=== PATIENT | female | born 1975 | race Caucasian/White ===

== ENCOUNTER 2016-06-03 10:13 | Emergency (ER) | payer BC ==
[~2016-06-03] VITALS: Ht 160 cm; Wt 67.5 kg
[~2016-06-03 10:13] MED LIST: LACT1CAP6 PO; MULT-506 PO; ONDA4TAB10 SL
[2016-06-03 10:21] VITALS: TEMP 36.7; Ht 160 cm; Wt 67.5 kg
[2016-06-03] MEDS ORDERED: SODIUM CHLORIDE 0.9% 1000ML 1,000 ML IV STA (10:44)
[2016-06-03] MEDS ORDERED: ONDANSETRON INJ 2 MG/ML 2 ML VIAL IV STA (10:44)
[2016-06-03] MEDS ORDERED: KETOROLAC TROMETHAMINE 30 MG/ML VIAL IV STA (10:44)
[2016-06-03 11:12] LABS: BASO % 0.2 %; BASO ABS # 0.01 K/uL (0-0.2); COMPLETE YES; EOS % 0.2 %; HEMATOCRIT 43.3 % (37-47); LYMPH % 34.3 %; LYMPH ABS # 1.51 K/uL (1.2-3.4); MEAN CELL VOLUME 83.4 fL (80-100); MEAN CORPUSCULAR HEMOGLOBIN 28.1 pg (25-34); MEAN CORPUSCULAR HGB CONC 33.7 g/dl (32-36); MEAN PLATELET VOLUME 9.4 fL (7.4-10.4); MONO % 6.6 %; NEUT % 58.7 %; PLATELET COUNT 190 K/uL (130-400); RED BLOOD COUNT 5.19 M/uL (4.2-5.4)
[2016-06-03 11:28] LABS: BLOOD UREA NITROGEN 10 mg/dl (7-18); CREATININE 0.74 mg/dl (0.60-1.20); GLUCOSE 87 mg/dl (70-99)
[2016-06-03 11:29] LABS: AST/SGOT 13 U/L (15-37); BUN/CREATININE RATIO 13.5 (10-20); C-REACTIVE PROTEIN < 0.29 mg/dl (0-0.29); CALCIUM 8.9 mg/dl (8.5-10.1); CARBON DIOXIDE 26 mmol/L (21-32); CHLORIDE 106 mmol/L (98-107); POTASSIUM 3.8 mmol/L (3.5-5.1); SODIUM 139 mmol/L (136-145)
[2016-06-03 11:39] LABS: ALKALINE PHOSPHATASE 43 U/L (45-117); ALT/SGPT 21 U/L (12-78)
--- NOTE | 2016-06-03 12:09 | EMERGENCY ROOM VISIT NOTE ---
History First contact with patient: 10:26 Chief Complaint: FLU LIKE SX Stated Complaint: FLU SX, V,D History of Present Illness The patient is a 40 year old female who presents to the Emergency Room with multiple complaints including recent nausea, vomiting, diarrhea, myalgias, weakness, chest cold and fever. The patient reports that her symptoms started last Monday with a bad headache. By Monday she then started to develop nausea and belly cramping. By the following day she developed vomiting and diarrhea. Over the next few days her symptoms improved. The patient then started to develop worsening cough on Monday. Within 24 hours, she felt better. She now reports primarily weakness and not feeling well. She has not had a fever over the past few days. She denies any current diarrhea, urinary symptoms, chest pain, shortness of breath, neck pain or headache. She denies any recent foreign travel. She denies any known sick contacts. The patient denies . Last menstruation was 3 weeks ago. She currently denies any pain. The patient reports that she does have a prior history of right upper quadrant and epigastric pain. She did have an ultrasound showing gallbladder sludge. However she reports that her current pain does not feel anything like she did before when she had an ultrasound performed of her gallbladder. Review of Systems HEENT: Denies visual problems, hearing loss, tinnitus. Denies difficulty swallowing or oral lesions. PULMONARY: Denies productive cough, shortness of breath, sputum production or hemoptysis. CARDIOVASCULAR: Denies chest pain, palpitations, dyspnea on exertion, orthopnea or peripheral edema. GASTROINTESTINAL: See history of present illness. GENITOURINARY: Denies dysuria, frequency, urgency or nocturia. NEUROLOGIC: Denies history of epilepsy, CVA, TIA or chronic headaches. MUSCULOSKELETAL: Denies history of joint tenderness/swelling. SKIN: Denies rashes or lesions. PSYCHIATRIC: Denies history of depression or mental illness. ENDOCRINE: Denies history of diabetes or thyroid disorders. Past Medical/Surgical History Medical Problems: (1) Anxiety State Nos (2) Bronchitis Surgical Problems: (1) History of wisdom tooth extraction Family History FH: cancer FH: heart disease FH: hypertension Social History Smoking Status: Former Smoker Alcohol Use: none Marital Status: Housing Status: lives with family Occupation Status: employed Current/Historical Medications No Active Prescriptions or Reported Meds Allergies Uncoded Allergies: LAYTEX (Allergy, Mild, RASHES, 01/12/16) PENCILLIN/DOXYCYCLINE/LEVAQUIN/BIAXIN (Allergy, Unknown, 08/06/04) Physical Exam Vital Signs Date Time Temp Pulse Resp B/P Pulse Ox O2 Delivery O2 Flow Rate FiO2 06/03/16 10:21 36.7 91 18 125/83 99 Room Air Physical Exam CONSTITUTIONAL: Healthy and well nourished. Alert and oriented X 3 with positive affect. Patient does not appear acutely or toxic. HEENT: Normocephalic, atraumatic. Pupils equal, round and reactive. Ears and nares are clear. No scleral icterus or conjunctival injection. OROPHARYNX: No posterior pharyngeal erythema, tonsillar hypertrophy or exudates. Mucous membranes are dry. NECK: Full active range of motion without discomfort. ED or carotid bruits. No nuchal rigidity. Negative Kernig's, negative Brudzinski sign. RESPIRATORY: Clear to auscultation bilaterally with no wheezing, crackles, rhonchi or stridor. CARDIOVASCULAR: Regular rate and rhythm with no murmurs, rubs or gallops. GASTROINTESTINAL: Bowel sounds present in all quadrants. Patient has minimal tenderness to palpation without any focal findings. Negative CVA tenderness. Negative McBurney's point tenderness. No rigidity, guarding or rebound. MUSCULOSKELETAL: Full range of motion of all joints without discomfort. INTEGUMENTARY: No rash or other significant dermatologic conditions noted. HEMATOLOGIC: No ecchymosis or petechiae. NEUROLOGIC: No focal neurologic deficits noted. Medical Decision & Procedures ER Provider Diagnostic Interpretation: Laboratory Results 06/03/16 11:00 Red Blood Count 5.19, Mean Corpuscular Volume 83.4, Mean Corpuscular Hemoglobin 28.1, Mean Corpuscular Hemoglobin Concent 33.7, Mean Platelet Volume 9.4, Neutrophils (%) (Auto) 58.7, Lymphocytes (%) (Auto) 34.3, Monocytes (%) (Auto) 6.6, Eosinophils (%) (Auto) 0.2, Basophils (%) (Auto) 0.2, Neutrophils # (Auto) 2.58, Lymphocytes # (Auto) 1.51, Monocytes # (Auto) 0.29, Eosinophils # (Auto) 0.01, Basophils # (Auto) 0.01 06/03/16 11:00 Test 06/03/16 11:00 White Blood Count 4.40 K/uL (4.8-10.8) Red Blood Count 5.19 M/uL (4.2-5.4) Hemoglobin 14.6 g/dL (12.0-16.0) Hematocrit 43.3 % (37-47) Mean Corpuscular Volume 83.4 fL (80-100) Mean Corpuscular Hemoglobin 28.1 pg (25-34) Mean Corpuscular Hemoglobin Concent 33.7 g/dl (32-36) Platelet Count 190 K/uL (130-400) Mean Platelet Volume 9.4 fL (7.4-10.4) Neutrophils (%) (Auto) 58.7 % Lymphocytes (%) (Auto) 34.3 % Monocytes (%) (Auto) 6.6 % Eosinophils (%) (Auto) 0.2 % Basophils (%) (Auto) 0.2 % Neutrophils # (Auto) 2.58 K/uL (1.4-6.5) Lymphocytes # (Auto) 1.51 K/uL (1.2-3.4) Monocytes # (Auto) 0.29 K/uL (0.11-0.59) Eosinophils # (Auto) 0.01 K/uL (0-0.5) Basophils # (Auto) 0.01 K/uL (0-0.2) RDW Standard Deviation 38.6 fL (36.4-46.3) RDW Coefficient of Variation 12.8 % (11.5-14.5) Immature Granulocyte % (Auto) 0.0 % Immature Granulocyte # (Auto) 0.00 K/uL (0.00-0.02) Erythrocyte Sedimentation Rate 27 mm/hr (0-21) Anion Gap 7.0 mmol/L (3-11) Est Creatinine Clear Calc Drug Dose 95.1 ml/min Estimated GFR () 119.1 Estimated GFR (Non- 102.8 BUN/Creatinine Ratio 13.5 (10-20) Calcium Level 8.9 mg/dl (8.5-10.1) Total Bilirubin 0.7 mg/dl (0.2-1) Direct Bilirubin 0.1 mg/dl (0-0.2) Aspartate Amino Transf (AST/SGOT) 13 U/L (15-37) Alanine Aminotransferase (ALT/SGPT) 21 U/L (12-78) Alkaline Phosphatase 43 U/L (45-117) C-Reactive Protein < 0.29 mg/dl (0-0.29) Total Protein 8.1 gm/dl (6.4-8.2) Albumin 3.8 gm/dl (3.4-5.0) Lipase 243 U/L (73-393) Thyroid Stimulating Hormone (TSH) 1.770 uIu/ml (0.300-4.500) Monoscreen NEG (NEG) The above labs were reviewed and were grossly normal except for a mildly elevated sedimentation rate. Monoscreen is negative. TSH is normal. Medications Administered Medications (Trade) Dose Ordered Sig/Nikia Route Start Time Stop Time Status Last Admin Dose Admin Sodium Chloride (Nss 1000ml) 1,000 ml @ 999 mls/hr Q1H1M STAT IV 06/03/16 10:44 06/03/16 11:44 DC 06/03/16 11:02 999 MLS/HR Ondansetron HCl (Zofran Inj) 4 mg NOW STAT IV 06/03/16 10:44 06/03/16 10:48 DC 06/03/16 11:02 4 MG Procedure 1. IV hydration: The patient received a liter normal saline bolus 2. IV medications: Toradol 30 mg and Zofran 4 mg IVP ED Course Patient history and physical exam were performed. Nurse's notes were reviewed. Vital signs were reviewed and were normal. IV access was established, and labs were drawn. The patient was hydrated with normal saline, and received IV medications as discussed in the previous Procedure section. Review of labs shows no significant findings except for an elevated sedimentation rate. LFTs and lipase are normal. The patient has no leukocytosis or anemia. Clark screen is negative. The patient was advised of her normal workup today. I did offer to perform a gallbladder ultrasound because of mild abdominal pain, and history of gallbladder sludge. The patient refused, reporting that she would rather go home and follow-up with her PCP for further reevaluation. The patient was instructed to return to the emergency department for any progressively worsening pain or developing fever. The patient does have Zofran ODT at home as needed for nausea. She was instructed to remain well-hydrated. The patient was happy with plan of care, and denied any significant symptoms at the time of discharge. Medical Decision Patient presents with multiple complaints. Her workup today does not show any significant abnormal labs. The patient refused gallbladder ultrasound. She does have a prior history of gallbladder sludge. Based on history and physical exam findings, I do not suspect acute cholecystitis,, peritonitis or other surgical abdomen. Laboratory studies are not suggestive of pancreatitis. I do not suspect pneumonia or other cardiopulmonary etiologies. It is certainly possible that the patient is suffering from a viral illness. Her biggest complaint is GI related, and may require GI consultation for further reevaluation. Impression Primary Impression: Malaise Additional Impression: Nausea & vomiting Departure Information Prescriptions No Active Prescriptions or Reported Meds Referrals Cici Dailey DO (PCP) Patient Instructions My [facility] Problem Qualifiers Additional Impression: Nausea & vomiting Vomiting type: unspecified Vomiting Intractability: non-intractable Qualified Codes: R11.2 - Nausea with vomiting, unspecified
[2016-06-03 12:10] VITALS: BP 101/72; PULSE 87; O2SAT 99
== END 2016-06-03 12:20 | disposition home or self-care (01) ==
LOC: C.EDB 10:14
DX: R11.2 Nausea with vomiting, unspecified (principal); R53.83 Other fatigue; F41.9 Anxiety disorder, unspecified; Z87.891 Personal history of nicotine dependence; Z88.0 Allergy status to penicillin; Z91.040 Latex allergy status; Z80.9 Family history of malignant neoplasm, unspecified; Z82.49 Family history of ischemic heart disease and other diseases of the circulatory system

== ENCOUNTER 2016-06-08 08:36 | Emergency (ER) | payer BC ==
[~2016-06-08] VITALS: Ht 160 cm; Wt 66.7 kg
[2016-06-08 08:40] VITALS: TEMP 36.8; Ht 160 cm; Wt 66.7 kg
[2016-06-08] MEDS ORDERED: SODIUM CHLORIDE 0.9% 1000ML 1,000 ML IV STA (09:44)
[2016-06-08 09:51] LABS: BASO % 0.2 %; BASO ABS # 0.01 K/uL (0-0.2); COMPLETE YES; EOS % 0.3 %; HEMATOCRIT 44.9 % (37-47); IG% 0.3 %; LYMPH % 26.9 %; LYMPH ABS # 1.72 K/uL (1.2-3.4); MEAN CELL VOLUME 84.9 fL (80-100); MEAN CORPUSCULAR HEMOGLOBIN 28.9 pg (25-34); MEAN CORPUSCULAR HGB CONC 34.1 g/dl (32-36); MEAN PLATELET VOLUME 9.9 fL (7.4-10.4); MONO % 7.5 %; NEUT % 64.8 %; PLATELET COUNT 302 K/uL (130-400); RED BLOOD COUNT 5.29 M/uL (4.2-5.4); WHITE BLOOD COUNT 6.39 K/uL (4.8-10.8)
[2016-06-08 09:57] LABS: MANUAL MICROSCOPIC REQUIRED? NO; REVIEW REQ? NO; URINE APPEARANCE CLEAR (CLEAR); URINE BILIRUBIN NEG (NEG); URINE COLOR YELLOW; URINE EPITHELIAL CELL AUTO 20-30 /lpf (0-5); URINE NITRITE NEG (NEG); URINE PH 6.5 (4.5-7.5); URINE SPECIFIC GRAVITY 1.016 (1.000-1.030); UROBILINOGEN NEG (NEG); ZZUR CULT IF INDIC CLEAN CATCH NO
[2016-06-08 10:01] LABS: BUN/CREATININE RATIO 12.9 (10-20); CREATININE 0.96 mg/dl (0.60-1.20)
--- NOTE | 2016-06-08 10:02 | EMERGENCY ROOM VISIT NOTE ---
History First contact with patient: 09:07 Chief Complaint: ABDOMINAL PAIN Stated Complaint: ABDOMINAL PAIN AND VOMITING Nursing Triage Summary: FLU LIKE SYMPTOMS. NAUSEA/VOMITING. History of Present Illness The patient is a 40 year old female who presents to the Emergency Room with complaints of nausea, vomiting and right upper quadrant abdominal pain. The patient had a similar episode one year ago and was found to have sludge in her gallbladder. The patient was seen here again at the end of last week. She had normal laboratory studies. She was feeling better and was discharged home. She states that last night she developed nausea and vomiting. She states the pain is in the right upper quadrant and radiates to the epigastric area. The patient stated she felt well between Monday and last night. She states that she tried Zofran. She states that a few weeks ago she has had upper respiratory symptoms and she has a persistent cough but has otherwise resolved. She reports generalized malaise and fatigue. She denies any chest pain, trouble breathing or pain with deep inspiration. Review of Systems A 10 system review of systems was completed with positives and pertinent negatives listed in the HPI. Past Medical/Surgical History Medical Problems: (1) Anxiety State Nos (2) Bronchitis Surgical Problems: (1) History of wisdom tooth extraction Family History FH: cancer FH: heart disease FH: hypertension Social History Smoking Status: Never Smoker Alcohol Use: none Marital Status: Housing Status: lives with family Occupation Status: employed Current/Historical Medications Scheduled PRN Ondansetron Odt (Zofran Odt), 8 MG SL Q6H PRN for Nausea Allergies Coded Allergies: [place] (Unverified Allergy, Mild, HIVES, 06/08/16) Roth Pepper (Unverified Allergy, Mild, ITCHY, TONG GETS PUFFY, 06/08/16) ANY PEPPERS Cashew (Unverified Allergy, Mild, HIVES, 06/08/16) Monosodium Glutamate (Unverified Allergy, Mild, MASSIVE HEADACHE/ GI PROBLEMS, 06/08/16) Soy Allergy (Unverified Allergy, Mild, ITCHY THROAT, 06/08/16) Uncoded Allergies: LAYTEX (Allergy, Mild, RASHES, 01/12/16) PENCILLIN/DOXYCYCLINE/LEVAQUIN/BIAXIN (Allergy, Unknown, 08/06/04) Physical Exam Vital Signs Date Time Temp Pulse Resp B/P Pulse Ox O2 Delivery O2 Flow Rate FiO2 06/08/16 12:48 90 18 98/72 100 Room Air 06/08/16 09:59 101 18 120/77 98 Room Air 06/08/16 08:40 36.8 111 16 114/78 94 Room Air Physical Exam VITALS: Vitals are noted on the nurse's note and reviewed by myself. Vital signs stable. GENERAL: This is a 40-year-old female, in no acute distress, nondiaphoretic, well-developed well-nourished. SKIN: The skin was without rashes, erythema, edema, or bruising. There is no tenting of the skin. Capillary reflex less than 2 seconds. HEAD: Normocephalic atraumatic. EARS: External auditory canals clear, tympanic membranes pearly without erythema or effusion bilaterally. EYES: Pupils equal round and reactive to light and accommodation. Conjunctivae without injection, sclerae without icterus. Extraocular movements intact. NOSE: Patent, turbinates without inflammation or discharge. No sinus tenderness. MOUTH: Mucous membranes moist. Tonsils are not enlarged. Pharynx without erythema or exudate. Uvula midline. Airway patent. Tongue does not deviate. NECK: Supple without nuchal rigidity. No lymphadenopathy. No thyromegaly. Cervical spine is nontender. No JVD. HEART: Regular rate and rhythm without murmurs gallops or rubs. LUNGS: Clear to auscultation bilaterally without wheezes, rales or rhonchi. No dullness to percussion. No retractions or accessory muscle use. ABDOMEN: Positive bowel sounds x 4.Soft, moderate right upper quadrant epigastric tenderness, without masses or organomegaly. Wade sign positive. MUSCULOSKELETAL: No muscle atrophy, erythema, or edema noted. Full range of motion in all extremities. Normal gait. Strength 5/5 throughout. NEURO: Patient was alert and oriented to person place and time. No focal neurological deficits. Medical Decision & Procedures ER Provider Diagnostic Interpretation: ABDOMINAL ULTRASOUND, RIGHT UPPER QUADRANT HISTORY: Right upper quadrant pain. COMPARISON: Right upper quadrant ultrasound January 12, 2016. FINDINGS: Liver morphology is normal. No hepatic lesions are identified. There is no biliary ductal dilatation. 2 small nonmobile echogenic abnormalities within the gallbladder are adherent to the gallbladder wall and measure up to 4 mm. These are unchanged since prior exam of January 12, 2016 and favor polyps. There is no gallbladder wall thickening. The pancreas is sonographically normal. There is mild right collecting system dilatation. IMPRESSION: 1. No gallstones or biliary ductal dilatation. 2. No change in 2 small gallbladder polyps measuring up to 4 mm, since ultrasound of January 12, 2016. 3. Mild right collecting system dilatation. This could be correlated with right flank pain. [~ rep ct add3]] TWO VIEW CHEST CLINICAL HISTORY: Cough. Vomiting. FINDINGS: PA and lateral chest radiographs are compared to study dated 01/12/2016. The cardiomediastinal silhouette is unremarkable. The lungs and pleural spaces are clear. There is no pneumothorax. The bony thorax appears intact. IMPRESSION: No active disease in the chest. ABDOMEN AND PELVIS CT WITHOUT CONTRAST CT DOSE: 520.94 mGy.cm HISTORY: right flank pain, hematuria TECHNIQUE: Multiaxial CT images of the abdomen and pelvis were performed without the use of intravenous and oral contrast according to the standard department stone protocol. COMPARISON STUDY: Abdominal ultrasound 06/08/2016. FINDINGS: There is a punctate stone within the upper pole of the left kidney. No right renal calculi. No ureteral stones or hydronephrosis. The lung bases are clear. Mild sclerosis within the bilateral sacroiliac joints. No erosive changes identified. The unenhanced liver, spleen, adrenal glands, gallbladder, and pancreas are unremarkable. No retroperitoneal lymphadenopathy. The uterus and bilateral ovaries are unremarkable. Suboptimal evaluation for bowel pathology due to the lack of adjacent oral contrast. However, there is no bowel wall thickening or obstruction. Normal appendix. IMPRESSION: 1. Left-sided nephrolithiasis. No hydronephrosis. 2. No definite bowel wall thickening or obstruction. 3. Normal appendix. Laboratory Results 06/08/16 08:58 Red Blood Count 5.29, Mean Corpuscular Volume 84.9, Mean Corpuscular Hemoglobin 28.9, Mean Corpuscular Hemoglobin Concent 34.1, Mean Platelet Volume 9.9, Neutrophils (%) (Auto) 64.8, Lymphocytes (%) (Auto) 26.9, Monocytes (%) (Auto) 7.5, Eosinophils (%) (Auto) 0.3, Basophils (%) (Auto) 0.2, Neutrophils # (Auto) 4.14, Lymphocytes # (Auto) 1.72, Monocytes # (Auto) 0.48, Eosinophils # (Auto) 0.02, Basophils # (Auto) 0.01 06/08/16 08:58 Test 06/08/16 08:55 06/08/16 08:58 Urine Color YELLOW Urine Appearance CLEAR (CLEAR) Urine pH 6.5 (4.5-7.5) Urine Specific [place] 1.016 (1.000-1.030) Urine Protein NEG (NEG) Urine Glucose (UA) NEG (NEG) Urine Ketones NEG (NEG) Urine Occult Blood TRACE (NEG) Urine Nitrite NEG (NEG) Urine Bilirubin NEG (NEG) Urine Urobilinogen NEG (NEG) Urine Leukocyte Esterase NEG (NEG) Urine WBC (Auto) 1-5 /hpf (0-5) Urine RBC (Auto) 0-4 /hpf (0-4) Urine Hyaline Casts (Auto) 1-5 /lpf (0-5) Urine Epithelial Cells (Auto) 20-30 /lpf (0-5) Urine Bacteria (Auto) NEG (NEG) Urine Test NEG (NEG) Hepatitis B Surface Antigen NEG (NEG) Hepatitis C Antibody NEG (NEG) White Blood Count 6.39 K/uL (4.8-10.8) Red Blood Count 5.29 M/uL (4.2-5.4) Hemoglobin 15.3 g/dL (12.0-16.0) Hematocrit 44.9 % (37-47) Mean Corpuscular Volume 84.9 fL (80-100) Mean Corpuscular Hemoglobin 28.9 pg (25-34) Mean Corpuscular Hemoglobin Concent 34.1 g/dl (32-36) Platelet Count 302 K/uL (130-400) Mean Platelet Volume 9.9 fL (7.4-10.4) Neutrophils (%) (Auto) 64.8 % Lymphocytes (%) (Auto) 26.9 % Monocytes (%) (Auto) 7.5 % Eosinophils (%) (Auto) 0.3 % Basophils (%) (Auto) 0.2 % Neutrophils # (Auto) 4.14 K/uL (1.4-6.5) Lymphocytes # (Auto) 1.72 K/uL (1.2-3.4) Monocytes # (Auto) 0.48 K/uL (0.11-0.59) Eosinophils # (Auto) 0.02 K/uL (0-0.5) Basophils # (Auto) 0.01 K/uL (0-0.2) RDW Standard Deviation 40.2 fL (36.4-46.3) RDW Coefficient of Variation 13.0 % (11.5-14.5) Immature Granulocyte % (Auto) 0.3 % Immature Granulocyte # (Auto) 0.02 K/uL (0.00-0.02) Anion Gap 6.0 mmol/L (3-11) Est Creatinine Clear Calc Drug Dose 72.9 ml/min Estimated GFR () 87.0 Estimated GFR (Non- 75.0 BUN/Creatinine Ratio 12.9 (10-20) Calcium Level 9.0 mg/dl (8.5-10.1) Total Bilirubin 1.2 mg/dl (0.2-1) Aspartate Amino Transf (AST/SGOT) 18 U/L (15-37) Alanine Aminotransferase (ALT/SGPT) 29 U/L (12-78) Alkaline Phosphatase 50 U/L (45-117) Total Protein 8.4 gm/dl (6.4-8.2) Albumin 4.2 gm/dl (3.4-5.0) Globulin 4.2 gm/dl (2.5-4.0) Albumin/Globulin Ratio 1.0 (0.9-2) Lipase 284 U/L (73-393) Medications Administered Medications (Trade) Dose Ordered Sig/Nikia Route Start Time Stop Time Status Last Admin Dose Admin Sodium Chloride (Nss 1000ml) 1,000 ml @ 999 mls/hr Q1H1M STAT IV 06/08/16 09:44 06/08/16 10:44 DC 06/08/16 09:44 999 MLS/HR ED Course The patient was seen and examined. Previous visits were reviewed. The patient does not have a fever or leukocytosis. She does not have any significant electrolyte abnormalities. Lipase is not elevated. Urinalysis was negative. Urine test was negative. She was negative for hepatitis B antigen and hepatitis C antibody. Hepatitis B antibody and hepatitis A antibody are pending. Chest x-ray does not reveal any obvious abnormality Ultrasound of the gallbladder was similar in appearance to previous and shows [address] scan of the abdomen and pelvis reveals left sided nephrolithiasis but no other acute abnormality The patient presents to the emergency department with intermittent right upper quadrant abdominal pain for the last 6 months. She states it has been worse over the last 1 week. The above evaluation does not reveal the obvious cause of her abdominal pain. Hepatitis A antibody is pending. The patient may need an outpatient HIDA scan for further evaluation and management. She declined a pelvic exam. She declined any pain medication. She should contact her family doctor today to schedule a follow-up appointment for further evaluation and management. She should return to the ER with worsening symptoms. The case was discussed with Dr. Lindquist who agrees with the assessment and treatment plan. Medical Decision DIFFERENTIAL DIAGNOSIS: Hepatitis, cholecystitis, cholangitis, biliary colic, pancreatitis, pneumonia, subdiaphragmatic abscess, appendicitis, inguinal hernia , nephrolithiasis, inflammatory bowel disease, mesenteric adenitis, peptic ulcer disease, GERD, gastritis, pancreatitis, myocardial infarction, pericarditis, ruptured aortic aneurysm, appendicitis, gastroenteritis, bowel obstruction, splenic infarct, diverticulitis, mesenteric ischemia, metabolic, peritonitis, among others. Impression Primary Impression: Upper abdominal pain Departure Information Dispostion Home / Self-Care Condition GOOD Referrals Cici Dailey DO (PCP) Derrick Alex MD Patient Instructions Abdominal Pain, My [facility] [employer] Additional Instructions Rest Zofran as prescribed, as needed Follow-up with your family doctor for further evaluation, management, possible HIDA scan and referral to gastroenterology Return with any fevers or worsening symptoms
--- NOTE | 2016-06-08 10:15 | DIAGNOSTIC IMAGING REPORT ---
TWO VIEW CHEST CLINICAL HISTORY: Cough. Vomiting. FINDINGS: PA and lateral chest radiographs are compared to study dated 01/12/2016. The cardiomediastinal silhouette is unremarkable. The lungs and pleural spaces are clear. There is no pneumothorax. The bony thorax appears intact. IMPRESSION: No active disease in the chest. Electronically signed by: Mj Mcallister M.D. 06/08/2016 10:12 AM Dictated Date/Time: 06/08/2016 10:12 AM
--- NOTE | 2016-06-08 10:35 | DIAGNOSTIC IMAGING REPORT ---
ABDOMINAL ULTRASOUND, RIGHT UPPER QUADRANT HISTORY: Right upper quadrant pain. COMPARISON: Right upper quadrant ultrasound January 12, 2016. FINDINGS: Liver morphology is normal. No hepatic lesions are identified. There is no biliary ductal dilatation. 2 small nonmobile echogenic abnormalities within the gallbladder are adherent to the gallbladder wall and measure up to 4 mm. These are unchanged since prior exam of January 12, 2016 and favor polyps. There is no gallbladder wall thickening. The pancreas is sonographically normal. There is mild right collecting system dilatation. IMPRESSION: 1. No gallstones or biliary ductal dilatation. 2. No change in 2 small gallbladder polyps measuring up to 4 mm, since ultrasound of January 12, 2016. 3. Mild right collecting system dilatation. This could be correlated with right flank pain. Electronically signed by: Krunal Barreto M.D. 06/08/2016 10:33 AM Dictated Date/Time: 06/08/2016 10:28 AM
--- NOTE | 2016-06-08 11:24 | DIAGNOSTIC IMAGING REPORT ---
ABDOMEN AND PELVIS CT WITHOUT CONTRAST CT DOSE: 520.94 mGy.cm HISTORY: right flank pain, hematuria TECHNIQUE: Multiaxial CT images of the abdomen and pelvis were performed without the use of intravenous and oral contrast according to the standard department stone protocol. COMPARISON STUDY: Abdominal ultrasound 06/08/2016. FINDINGS: There is a punctate stone within the upper pole of the left kidney. No right renal calculi. No ureteral stones or hydronephrosis. The lung bases are clear. Mild sclerosis within the bilateral sacroiliac joints. No erosive changes identified. The unenhanced liver, spleen, adrenal glands, gallbladder, and pancreas are unremarkable. No retroperitoneal lymphadenopathy. The uterus and bilateral ovaries are unremarkable. Suboptimal evaluation for bowel pathology due to the lack of adjacent oral contrast. However, there is no bowel wall thickening or obstruction. Normal appendix. IMPRESSION: 1. Left-sided nephrolithiasis. No hydronephrosis. 2. No definite bowel wall thickening or obstruction. 3. Normal appendix. Electronically signed by: Dong Yuan M.D. 06/08/2016 11:21 AM Dictated Date/Time: 06/08/2016 11:09 AM
[2016-06-08] MEDS ORDERED: ONDA8TAB62 SL (11:56)
[2016-06-08 12:48] VITALS: BP 98/72; PULSE 90; O2SAT 100
== END 2016-06-08 12:50 | disposition home or self-care (01) ==
LOC: C.EDB 08:37 → C.EDA 12:50
DX: R10.10 Upper abdominal pain, unspecified (principal); R11.2 Nausea with vomiting, unspecified; F41.9 Anxiety disorder, unspecified; Z88.8 Allergy status to other drugs, medicaments and biological substances; Z91.018 Allergy to other foods; Z80.9 Family history of malignant neoplasm, unspecified; Z82.49 Family history of ischemic heart disease and other diseases of the circulatory system

== ENCOUNTER → 2016-06-17 | Outpatient (CLI) | payer BC ==
[~2016-06-17] MED LIST changes: -LACT1CAP6 PO; -MULT-506 PO; -ONDA4TAB10 SL; +ONDA8TAB62 SL
[2016-06-17 15:25] LABS: LYME DISEASE AB IGM NEG (NEG)
[2016-06-17 15:28] LABS: LYME DISEASE AB IGG NEG (NEG)
== END | disposition home or self-care (01) ==
LOC: C.LABSPEC 11:20
PROVIDERS: ATTEND Family Medicine
DX: R53.83 Other fatigue (principal)

== ENCOUNTER → 2016-06-24 | Outpatient (CLI) | payer BC ==
[~2016-06-24] MED LIST changes: +SINCALIDE INJ 1.3 MCG in SODIUM CHLORIDE 0.9% 100ML 100 ML IV SCH
--- NOTE | 2016-06-24 09:56 | DIAGNOSTIC IMAGING REPORT ---
NUCLEAR MEDICINE HEPATOBILIARY SCAN WITH EJECTION FRACTION HISTORY: Right upper quadrant abdominal pain. COMPARISON: Abdominal ultrasound 06/08/2016 TECHNIQUE: Immediately following the intravenous administration of 5.4 mCi Tc-99m Choletec, dynamic anterior abdominal imaging pre/post 1.3 mcg of Kinevac was performed. FINDINGS: Uniform hepatic tracer accumulation is shown. Prompt intrahepatic biliary excretion is seen. The gallbladder, common bile duct, and small bowel are all visualized by 55 minutes. This appearance represents the normal sequence of biliary excretion. The gall bladder ejection fraction following administration of Kinevac was 68% (normal >35%). IMPRESSION: 1. No evidence for cystic duct obstruction. 2. Gallbladder ejection fraction calculated to be 68 %. Electronically signed by: Dong Yuan M.D. 06/24/2016 9:55 AM Dictated Date/Time: 06/24/2016 9:54 AM
== END | disposition home or self-care (01) ==
LOC: C.NUCL 07:31
PROVIDERS: ATTEND Family Medicine
DX: R10.11 Right upper quadrant pain (principal)

== ENCOUNTER → 2016-10-14 | Outpatient (CLI) | payer BC ==
[~2016-10-14] MED LIST changes: -SINCALIDE INJ 1.3 MCG in SODIUM CHLORIDE 0.9% 100ML 100 ML IV SCH
== END | disposition home or self-care (01) ==
LOC: C.PAPS 15:06
PROVIDERS: ATTEND Physician Assistant
DX: Z01.419 Encounter for gynecological examination (general) (routine) without abnormal findings (principal); R87.616 Satisfactory cervical smear but lacking transformation zone

== ENCOUNTER 2017-05-04 07:24 | Emergency (ER) | payer BC, OTHER ==
[~2017-05-04] VITALS: Ht 160 cm; Wt 63.5 kg
[2017-05-04 07:26] VITALS: TEMP 37; Ht 160 cm; Wt 63.5 kg
[2017-05-04] MEDS ORDERED: DiphenhydrAMINE HCL 50 MG/ML VIAL IV STA (07:37)
[2017-05-04] MEDS ORDERED: METOCLOPRAMIDE HCL INJ 5 MG/ML 2 ML VIAL IV STA (07:37)
--- NOTE | 2017-05-04 07:38 | EMERGENCY ROOM VISIT NOTE ---
History Report prepared by Josette: Darrin Sanchez Under the Supervision of: Dr. Bhavin Dueñas M.D. First contact with patient: 07:30 Chief Complaint: OTHER COMPLAINT Stated Complaint: GALLBLADDER History of Present Illness The patient is a 41 year old female who presents to the Emergency Room with complaints of worsening nausea over the past 3 days. She states that she has had a history of gallbladder issues for a year and a half, and has changed her diet and has been on supplements so that she does not lose the organ. The patient says that she has been so nauseous that she can hardly eat, and starting last night, she has been getting intermittent sharp stabbing pain around the right side of her abdomen. The patient notes that the nausea is currently worse than the pain. She denies any chance of or retaining a tampon. She has no notable abdominal surgical history. Source of History: patient Onset: Over past 3 days Position: other (global) Symptom Intensity: can hardly eat Quality: other (nausea) Timing: worsening Associated Symptoms: + abdominal pain Note: No other associated symptoms noted. Review of Systems See HPI for pertinent positives & negatives. A total of 10 systems reviewed and were otherwise negative. Past Medical & Surgical Medical Problems: (1) Anxiety State Nos (2) Bronchitis Surgical Problems: (1) History of wisdom tooth extraction Family History FH: cancer FH: heart disease FH: hypertension Social History Smoking Status: Never Smoker Alcohol Use: none Marital Status: Housing Status: lives with family Occupation Status: employed Current/Historical Medications Scheduled Acetylcysteine (Nutrient) (M-Olfxmv-B-Cysteine), 600 MG PO DAILY Cyanocobalamin (Vitamin B-12), 5,000 MCG PO DAILY [Digestzymes], 1 TAB PO TID [Selenium], 1 TAB PO DAILY [Vitamin D], 1 DROP PO DAILY Scheduled PRN Metoclopramide (Reglan), 10 MG PO Q6H PRN for Nausea [Insomnitol], 1 TAB PO HS PRN for PRN Allergies Coded Allergies: [place] (Unverified Allergy, Mild, HIVES, 05/04/17) Roth Pepper (Unverified Allergy, Mild, ITCHY, TONG GETS PUFFY, 05/04/17) ANY PEPPERS Cashew (Unverified Allergy, Mild, HIVES, 05/04/17) Latex (Verified Allergy, Mild, RASH, 05/04/17) Monosodium Glutamate (Unverified Allergy, Mild, MASSIVE HEADACHE/ GI PROBLEMS, 06/08/16) Soy Allergy (Unverified Allergy, Mild, ITCHY THROAT, 05/04/17) Clarithromycin (Verified Allergy, Unknown, ., 05/04/17) Doxycycline (Verified Allergy, Unknown, ., 05/04/17) Levofloxacin (Verified Allergy, Unknown, ., 05/04/17) Penicillins (Verified Allergy, Unknown, ., 05/04/17) Physical Exam Vital Signs Date Time Temp Pulse Resp B/P (MAP) Pulse Ox O2 Delivery O2 Flow Rate FiO2 05/04/17 09:38 83 20 106/76 98 05/04/17 07:58 98 05/04/17 07:26 37.0 114 18 129/85 98 Room Air Physical Exam GENERAL: Awake, alert, well-appearing, in no acute distress HENT: Normocephalic, atraumatic. Oropharynx unremarkable. EYES: Normal conjunctiva. Sclera non-icteric. NECK: Supple. No nuchal rigidity. FROM. No JVD. RESPIRATORY: Clear to auscultation. CARDIAC: Regular rate, normal rhythm. Extremities warm and well perfused. Pulses equal. ABDOMEN: Soft, non-distended. Slightly tender in the right upper quadrant. No rebound or guarding. No masses. RECTAL: Deferred. MUSCULOSKELETAL: Chest examination reveals no tenderness. The back is symmetrical on inspection without obvious abnormality. There is no CVA tenderness to palpation. No joint edema. LOWER EXTREMITIES: Calves are equal size bilaterally and non-tender. No edema. No discoloration. NEURO: Normal sensorium. No sensory or motor deficits noted. SKIN: No rash or jaundice noted. Medical Decision & Procedures ER Provider Diagnostic Interpretation: US results as stated below per my review and radiologist interpretation: BILIARY ULTRASOUND CLINICAL HISTORY: Right upper quadrant abdominal pain COMPARISON STUDY: May 2016 FINDINGS: The pancreas appears sonographically normal. The liver appears sonographically normal. There is no right-sided hydronephrosis. There is no ductal dilatation. The common bile duct measures 3 mm. The gallbladder contains 2 echogenic nonshadowing foci, likely representing small polyps. These remain unchanged the prior study. The largest measures 4 mm. IMPRESSION: 1. Two small gallbladder polyps remain stable 2. Normal pancreas 3. No ductal dilatation Electronically signed by: Trevon Leger M.D. 05/04/2017 8:37 AM Dictated Date/Time: 05/04/2017 8:33 AM Laboratory Results 05/04/17 07:45 Red Blood Count 5.39, Mean Corpuscular Volume 85.5, Mean Corpuscular Hemoglobin 28.6, Mean Corpuscular Hemoglobin Concent 33.4, Mean Platelet Volume 9.3, Neutrophils (%) (Auto) 68.6, Lymphocytes (%) (Auto) 25.1, Monocytes (%) (Auto) 5.5, Eosinophils (%) (Auto) 0.4, Basophils (%) (Auto) 0.4, Neutrophils # (Auto) 3.72, Lymphocytes # (Auto) 1.36, Monocytes # (Auto) 0.30, Eosinophils # (Auto) 0.02, Basophils # (Auto) 0.02 05/04/17 07:45 Test 05/04/17 07:45 White Blood Count 5.42 K/uL (4.8-10.8) Red Blood Count 5.39 M/uL (4.2-5.4) Hemoglobin 15.4 g/dL (12.0-16.0) Hematocrit 46.1 % (37-47) Mean Corpuscular Volume 85.5 fL (80-100) Mean Corpuscular Hemoglobin 28.6 pg (25-34) Mean Corpuscular Hemoglobin Concent 33.4 g/dl (32-36) Platelet Count 254 K/uL (130-400) Mean Platelet Volume 9.3 fL (7.4-10.4) Neutrophils (%) (Auto) 68.6 % Lymphocytes (%) (Auto) 25.1 % Monocytes (%) (Auto) 5.5 % Eosinophils (%) (Auto) 0.4 % Basophils (%) (Auto) 0.4 % Neutrophils # (Auto) 3.72 K/uL (1.4-6.5) Lymphocytes # (Auto) 1.36 K/uL (1.2-3.4) Monocytes # (Auto) 0.30 K/uL (0.11-0.59) Eosinophils # (Auto) 0.02 K/uL (0-0.5) Basophils # (Auto) 0.02 K/uL (0-0.2) RDW Standard Deviation 40.2 fL (36.4-46.3) RDW Coefficient of Variation 12.8 % (11.5-14.5) Immature Granulocyte % (Auto) 0.0 % Immature Granulocyte # (Auto) 0.00 K/uL (0.00-0.02) Anion Gap 4.0 mmol/L (3-11) Est Creatinine Clear Calc Drug Dose 65.2 ml/min Estimated GFR () 78.4 Estimated GFR (Non- 67.6 BUN/Creatinine Ratio 15.7 (10-20) Calcium Level 9.2 mg/dl (8.5-10.1) Total Bilirubin 0.9 mg/dl (0.2-1) Direct Bilirubin 0.2 mg/dl (0-0.2) Aspartate Amino Transf (AST/SGOT) 18 U/L (15-37) Alanine Aminotransferase (ALT/SGPT) 25 U/L (12-78) Alkaline Phosphatase 58 U/L (45-117) Total Protein 8.6 gm/dl (6.4-8.2) Albumin 4.0 gm/dl (3.4-5.0) Lipase 225 U/L (73-393) Labs reviewed by ED physician. Medications Administered Medications (Trade) Dose Ordered Sig/Nikia Route Start Time Stop Time Status Last Admin Dose Admin Metoclopramide HCl (Reglan Inj) 10 mg NOW STAT IV 05/04/17 07:37 05/04/17 07:40 DC 05/04/17 07:55 10 MG Diphenhydramine HCl (Benadryl Inj) 50 mg NOW STAT IV 05/04/17 07:37 05/04/17 07:40 DC 05/04/17 07:54 50 MG ED Course 0731: Past medical records reviewed. The patient was evaluated in room B8. A complete history and physical examination was performed. 0737: Benadryl Inj 50 mg IV, Reglan Inj 10 mg IV. 0905: Upon reexamination the patient is resting. I discussed results and treatment plan with the patient. She verbalizes agreement and understanding. The patient is ready for discharge. Medical Decision Differential diagnosis: Etiologies such as appendicitis, diverticulitis, PUD, biliary pathology, UTI, pancreatitis, obstruction, mesenteric ischemia, aortic pathology, infections, inflammatory bowel disease, renal colic, as well as others were entertained. This is a 41-year-old female who presents emergency department complaining of nausea. On physical examination the patient is nontender. Serial abdominal examinations were performed and the patient in the emergency department and at no time to the patient exhibited a surgical abdomen or abdominal tenderness. She is refusing pain medication here in the emergency department. She has a normal CBC with no elevation in her white blood count has a normal renal profile has a normal liver profile has a normal lipase. In addition the patient was sent for an ultrasound which did not show any acute cholecystitis. The patient was prepped for a CAT scan of the abdomen and pelvis however using shared medical decision making the patient does not wish to go on with the CAT scan. She is going to follow-up with surgery. Patient and are in agreement with the treatment plan. Medication Reconcilliation Current Medication List: was personally reviewed by me Blood Pressure Screening Patient's blood pressure: Normal blood pressure Impression Primary Impression: Nausea Scribe Attestation The scribe's documentation has been prepared under my direction and personally reviewed by me in its entirety. I confirm that the note above accurately reflects all work, treatment, procedures, and medical decision making performed by me. Departure Information Dispostion Home / Self-Care Prescriptions Metoclopramide (Reglan) 10 Mg Tab 10 MG PO Q6H Y for Nausea, #6 TAB Prov: Bhavin Dueñas MD 05/04/17 Referrals Cici Dailey DO (PCP) Carlitos Rai M.D. Forms HOME CARE DOCUMENTATION FORM, IMPORTANT VISIT INFORMATION, WORK / SCHOOL INSTRUCTIONS Patient Instructions ED Nausea Vomiting, My [facility] Additional Instructions Follow up with Dr Rai's office Clear liquid diet next 48 hours You have been examined and treated today on an emergency basis only. This is not a substitute for, or an effort to provide, complete comprehensive medical care. It is impossible to recognize and treat all injuries or illnesses in a single emergency department visit. It is therefore important that you follow up closely with Dr Dailey. Call as soon as possible for an appointment. Thank you for your time and consideration. I look forward to speaking with you again soon. Please don't hesitate to call us if you have any questions.
[2017-05-04 08:00] LABS: BASO % 0.4 %; BASO ABS # 0.02 K/uL (0-0.2); EOS % 0.4 %; EOS ABS # 0.02 K/uL (0-0.5); HEMATOCRIT 46.1 % (37-47); HEMOGLOBIN 15.4 g/dL (12.0-16.0); LYMPH % 25.1 %; LYMPH ABS # 1.36 K/uL (1.2-3.4); MEAN CELL VOLUME 85.5 fL (80-100); MEAN CORPUSCULAR HEMOGLOBIN 28.6 pg (25-34); MEAN CORPUSCULAR HGB CONC 33.4 g/dl (32-36); MEAN PLATELET VOLUME 9.3 fL (7.4-10.4); MONO % 5.5 %; NEUT % 68.6 %; NEUT ABS # 3.72 K/uL (1.4-6.5); PLATELET COUNT 254 K/uL (130-400); RED CELL DISTRIBUTION WIDTH CV 12.8 % (11.5-14.5); RED CELL DISTRIBUTION WIDTH SD 40.2 fL (36.4-46.3); WHITE BLOOD COUNT 5.42 K/uL (4.8-10.8)
[2017-05-04] MEDS ORDERED: ACET1CAP16 PO (08:03)
[2017-05-04] MEDS ORDERED: VITAMIN D PO (08:03)
[2017-05-04] MEDS ORDERED: CYAN5000 PO (08:03)
[2017-05-04] MEDS ORDERED: SELENIUM PO (08:03)
[2017-05-04] MEDS ORDERED: [UNRECOGNIZED DRUG - OTHER] PO (08:03)
[2017-05-04] MEDS ORDERED: [UNRECOGNIZED DRUG - OTHER] PO (08:03)
[2017-05-04 08:17] LABS: CALCIUM 9.2 mg/dl (8.5-10.1); CREATININE 1.04 mg/dl (0.60-1.20); POTASSIUM 4.1 mmol/L (3.5-5.1)
[2017-05-04 08:20] LABS: TOTAL PROTEIN 8.6 gm/dl (6.4-8.2)
--- NOTE | 2017-05-04 08:38 | DIAGNOSTIC IMAGING REPORT ---
BILIARY ULTRASOUND CLINICAL HISTORY: Right upper quadrant abdominal pain COMPARISON STUDY: May 2016 FINDINGS: The pancreas appears sonographically normal. The liver appears sonographically normal. There is no right-sided hydronephrosis. There is no ductal dilatation. The common bile duct measures 3 mm. The gallbladder contains 2 echogenic nonshadowing foci, likely representing small polyps. These remain unchanged the prior study. The largest measures 4 mm. IMPRESSION: 1. Two small gallbladder polyps remain stable 2. Normal pancreas 3. No ductal dilatation Electronically signed by: Trevon Leger M.D. 05/04/2017 8:37 AM Dictated Date/Time: 05/04/2017 8:33 AM
[2017-05-04] MEDS ORDERED: METO-157 PO (09:07)
[2017-05-04 09:38] VITALS: BP 106/76; PULSE 83; O2SAT 98
== END 2017-05-04 09:42 | disposition home or self-care (01) ==
LOC: C.EDB 07:25
DX: R11.0 Nausea (principal); Z91.018 Allergy to other foods; Z91.040 Latex allergy status; Z88.8 Allergy status to other drugs, medicaments and biological substances; Z88.1 Allergy status to other antibiotic agents; Z88.0 Allergy status to penicillin